=== PATIENT | female | born 1995 | race Hispanic/Latino ===

== ENCOUNTER 2022-11-06 08:57 | Emergency (ER) | payer OTHER ==
[~2022-11-06] VITALS: Ht 160 cm; Wt 59.9 kg
[2022-11-06 09:09] VITALS: O2SAT 100
[2022-11-06] MEDS ORDERED: ONDANSETRON HCL INJ 2MG/ML 2ML 2 MG/ML VIAL IV STA (09:23)
[2022-11-06] MEDS ORDERED: FAMOTIDINE 20 MG/2 ML VIAL IV STA (09:23)
[2022-11-06] MEDS ORDERED: SODIUM CHLORIDE 0.9% 1000ML 1,000 ML IV ONE (09:30)
[2022-11-06] MEDS ORDERED: SODIUM CHLORIDE 0.9% 1000ML 1,000 ML ONE (09:32)
[2022-11-06] MEDS ORDERED: PEPCID20 MG PO (10:04)
[2022-11-06] MEDS ORDERED: ONDANSETRON ODT4 MG PO (10:05)
== END 2022-11-06 10:28 | disposition home or self-care (01) ==
LOC: FSED 09:15
DX: R11.2 Nausea with vomiting, unspecified (principal); K29.70 Gastritis, unspecified, without bleeding; R10.10 Upper abdominal pain, unspecified
CPT/HCPCS: 80048; 80076; 81003; 81025; 85025; 96374; 96376; 99283; J2405; J7030